=== PATIENT | male | born 1985 ===

== ENCOUNTER 2018-01-18 20:01 | Inpatient (IN) ==
[2018-01-18] MEDS ORDERED: HEPARIN/NACL 0.9% 2 UNITS/ML 1,500 ML IV ONE (20:10)
[2018-01-18] MEDS ORDERED: LIDOCAINE 1% 20 ML VIAL ONE (20:10)
[2018-01-18] MEDS ORDERED: NITROGLYCERIN DRIP 50 MG/250 ML BOTTLE IV ONE (20:37)
[2018-01-18] MEDS ORDERED: HYDROmorphone 2 MG/1 ML VIAL ONE (20:38)
[2018-01-18] MEDS ORDERED: VERAPAMIL 5 MG/2 ML VIAL ONE (20:38)
[2018-01-18] MEDS ORDERED: MIDAZOLAM 2 MG/2 ML VIAL ONE (20:53)
[2018-01-18] MEDS ORDERED: TIROFIBAN 5,000 MCG/100 ML PREMIX IV ONE (20:53)
[2018-01-18] MEDS ORDERED: TIROFIBAN 5,000 MCG/100 ML PREMIX IV SCH (20:59)
[2018-01-18] MEDS ORDERED: EPTIFIBATIDE 20,000 MCG/10 ML VIAL ONE (21:10)
[2018-01-18] MEDS ORDERED: CLOPIDOGREL 300 MG TABLET ONE ×2 (21:11→21:12)
[2018-01-18] MEDS ORDERED: SODIUM CHLORIDE 0.9% 1,000 ML IV SCH (21:30)
[2018-01-18] MEDS ORDERED: NITROGLYCERIN DRIP 50 MG/250 ML BOTTLE IV PRN (22:14)
[2018-01-18] MEDS ORDERED: NITROGLYCERIN 2% OINT 1 INCH/GM PACK TOP ONE ×2 (22:17→22:19)
[2018-01-18] MEDS ORDERED: HYDROmorphone 2 MG/1 ML VIAL IV PRN (22:46)
[2018-01-18] MEDS ORDERED: SODIUM CHLORIDE 0.9% 500 ML IV ONE (22:47)
[2018-01-18] MEDS: ZALEPLON 5 MG CAPSULE PO PRN (23:00)
[2018-01-18] MEDS: ATORVASTATIN 40 MG TABLET PO SCH (23:12)
[2018-01-19 04:55] LABS: Basophils % 0.3 % (0.0-0.8); Eosinophils # 0.1 10*3/uL (0.0-0.87); Eosinophils % 0.5 % (0.00-10.9); Hematocrit 36.1 VOL% (42.0-52.0); Hemoglobin 12.6 GM/DL (14.0-18.0); Immature Granulocytes % 0.3 %; Immature Granulocytes Absolute 0.04 #; Lymphocytes # 2.3 10*3/uL (1.4-4.0); Lymphocytes % 19.6 % (21.2-54.2); Mean Corpuscular HGB Conc 34.9 GM/DL (32-36); Mean Corpuscular Hemoglobin 30 PG (27-34); Mean Corpuscular Volume 84.9 FL (87-102); Mean Platelet Volume 8.8 FL (9.6-12.0); Monocytes # 0.9 10*3/uL (0.11-0.8); Monocytes % 7.4 % (1.7-12.7); Neutrophils # 8.3 10*3/uL (1.4-7.4); Neutrophils % 71.9 % (38.7-73.9); Platelet Count 267 T/CUMM (130-400); Red Blood Count 4.25 MC/CUMM (3.8-5.5); Red Cell Distribution Width 13.3 % (9.3-17.3); White Blood Count 11.5 T/CUMM (4-12)
[2018-01-19 05:30] LABS: CKMB % 10.7 %; Calcium 7.8 MG/DL (8.5-10.1); Osmolality,Calculated 284.3 MOS/KG (273-304); Potassium 3.8 MMOL/L (3.5-5.1)
[2018-01-19 05:32] LABS: Troponin I 8.09 NG/ML (0.00-0.045)
[2018-01-19] MEDS: CLOPIDOGREL 75 MG TABLET PO SCH (09:18)
[2018-01-19] MEDS: ASPIRIN EC 81 MG TABLET PO SCH (09:18)
[2018-01-19] MEDS ORDERED: GLUCAGON 1 MG VIAL IM PRN (15:31)
[2018-01-19] MEDS ORDERED: DEXTROSE 50% 25 GM/50 ML VIAL IV PRN (15:31)
[2018-01-19] MEDS: INSULIN REGULAR 100 UNIT/ML SUBCUT SCH ×2 (16:01→20:33)
[2018-01-19] MEDS: ATORVASTATIN 40 MG TABLET PO SCH (20:34)
[2018-01-19] MEDS: METOPROLOL TARTRATE 25 MG TABLET PO SCH (20:34)
[2018-01-19] MEDS: ZALEPLON 5 MG CAPSULE PO PRN (22:30)
[2018-01-20 04:19] LABS: Basophils % 0.2 % (0.0-0.8); Eosinophils # 0.1 10*3/uL (0.0-0.87); Eosinophils % 0.8 % (0.00-10.9); Hematocrit 36.9 VOL% (42.0-52.0); Hemoglobin 12.1 GM/DL (14.0-18.0); Immature Granulocytes % 0.3 %; Immature Granulocytes Absolute 0.03 #; Lymphocytes # 2.3 10*3/uL (1.4-4.0); Lymphocytes % 21.8 % (21.2-54.2); Mean Corpuscular HGB Conc 32.8 GM/DL (32-36); Mean Corpuscular Hemoglobin 29 PG (27-34); Mean Corpuscular Volume 88.5 FL (87-102); Mean Platelet Volume 9.1 FL (9.6-12.0); Monocytes # 0.7 10*3/uL (0.11-0.8); Monocytes % 7.1 % (1.7-12.7); Neutrophils # 7.3 10*3/uL (1.4-7.4); Neutrophils % 69.8 % (38.7-73.9); Platelet Count 243 T/CUMM (130-400); Red Blood Count 4.17 MC/CUMM (3.8-5.5); Red Cell Distribution Width 13.2 % (9.3-17.3); White Blood Count 10.4 T/CUMM (4-12)
[2018-01-20 04:38] LABS: Calcium 7.9 MG/DL (8.5-10.1); Osmolality,Calculated 292.8 MOS/KG (273-304); Potassium 3.9 MMOL/L (3.5-5.1)
[2018-01-20 04:39] LABS: Risk Ratio 2.41; VLDL CHOLESTEROL 13.2 MG/DL
[2018-01-20] MEDS: CLOPIDOGREL 75 MG TABLET PO SCH (08:39)
[2018-01-20] MEDS: ASPIRIN EC 81 MG TABLET PO SCH (08:39)
[2018-01-20] MEDS: METOPROLOL TARTRATE 25 MG TABLET PO SCH (08:39)
[2018-01-20] MEDS: INSULIN REGULAR 100 UNIT/ML SUBCUT SCH ×2 (08:40→12:08)
[2018-01-20 12:20] VITALS: BP 123/86
[2018-01-20] MEDS ORDERED: metFORMIN 500 MG TABLET PO SCH (17:00)
== END 2018-01-20 14:53 | disposition home or self-care (01) | DRG 246 ==
LOC: N.CL 20:01 → N.CC 21:54 → N.TELEN 01-19 15:29
PROVIDERS: ADMIT Internal Medicine Cardiovascular Disease; ATTEND Internal Medicine Cardiovascular Disease
PROC: CLCCHCL (ICD-10-PCS; 2018-01-18 20:45)